=== PATIENT | female | born 1960 | race Hispanic/Latino ===

== ENCOUNTER → 2019-08-05 | Outpatient (CLI) | payer OTHER ==
[~2019-08-05] MED LIST: LORAZEPAM INJ 2 MG/ML VIAL ONE
--- NOTE | 2019-08-05 10:57 | Diagnostic Imaging Report ---
TECHNIQUE: Magnetic resonance imaging of the RIGHT SHOULDER was performed WITHOUT injected contrast. COMPARISON: None available. HISTORY: Pain FINDINGS: MUSCLES AND TENDONS: Rotator Cuff: Tendons: Rotator cuff tendinopathy without tear. Muscles: No focal muscle atrophy. Biceps Tendon: The long head of the biceps tendon is intact and within the intertubercular groove. GLENOHUMERAL JOINT: Glenoid Labrum: No displaced tear. Articular Cartilage: No focal defect. AC JOINT AND ACROMION: Mild hypertrophic degenerative changes of the acromioclavicular joint. The acromion is unremarkable. BONE: Cystic change in the humeral head at the rotator cuff insertion No acute fracture. SOFT TISSUES: Subacromial subdeltoid bursal fluid/bursitis. IMPRESSION: Rotator cuff tendinopathy without tear. Acromioclavicular arthrosis. Subacromial subdeltoid bursal fluid/bursitis Signed by: Dr. Vinnie Gaines M.D. on 08/05/2019 10:53 AM
--- NOTE | 2019-08-06 13:45 | NUR ---
attempted to make post procedure followup but no answer
== END ==
LOC: MRI 08:43
PROVIDERS: ATTEND Specialist
DX: M75.101 Unspecified rotator cuff tear or rupture of right shoulder, not specified as traumatic (principal)
CPT/HCPCS: J2060